=== PATIENT | male | born 1945 | race Caucasian/White ===

== ENCOUNTER 2016-04-16 15:39 | Emergency (ER) | payer OTHER ==
[~2016-04-16] VITALS: Ht 170.2 cm; Wt 83.0 kg
[~2016-04-16 15:39] MED LIST: ASPI81TA28 PO; CZR50 PO
[2016-04-16 15:48] VITALS: Ht 170.2 cm; Wt 83.0 kg
[2016-04-16] MEDS ORDERED: OXYCODONE HCL IR 5 MG TAB (IMMEDIATE RELEASE) PO STA (16:32)
[2016-04-16] MEDS ORDERED: DIPH25CA65 PO (16:43)
[2016-04-16] MEDS ORDERED: CHOL1000 PO (16:43)
[2016-04-16] MEDS ORDERED: XYLOCAINE 1%/SOD BICARB 20 ML VIAL INFIL ONE (16:45)
[2016-04-16] MEDS ORDERED: BUPIVACAINE 0.5 % 5 MG/1 ML MPF 30ML VIAL INFIL ONE (16:45)
--- NOTE | 2016-04-16 17:09 | DIAGNOSTIC IMAGING REPORT ---
LEFT SECOND FINGER RADIOGRAPHS CLINICAL HISTORY: Left second finger fracture. COMPARISON: None FINDINGS: There is soft tissue irregularity of the distal aspect of the left second finger. There are several tiny bone fragments adjacent to the distal aspect of the distal phalanx of the left second finger. Cortical irregularity of the distal tuft is noted defined suggest a minimally displaced fracture with tiny bone fragments. There is minimal bone loss. IMPRESSION: Cortical irregularity of the distal tuft of the distal phalanx of the left second finger consistent with a minimally displaced fracture with a few associated tiny bone fragments. Electronically signed by: Rafiq Owens M.D. 04/16/2016 5:08 PM Dictated Date/Time: 04/16/2016 5:06 PM
--- NOTE | 2016-04-16 17:12 | EMERGENCY ROOM VISIT NOTE ---
ED Visit Note First contact with patient: 16:25 I have seen and examined this patient with Blaine Rios and generally agree with the treatment plan as discussed. Current/Historical Medications Scheduled Aspirin (Aspirin Ec), 81 MG PO DAILY Cholecalciferol (Vitamin D3), 2,000 INTER.UNIT PO DAILY Diphenhydramine Hcl (Benadryl Allergy), 50 MG PO HS Losartan Potassium (Losartan Potassium), 50 MG PO DAILY Allergies Coded Allergies: No Known Allergies (Verified , 08/18/15) Vital Signs Date Time Temp Pulse Resp B/P Pulse Ox O2 Delivery O2 Flow Rate FiO2 04/16/16 15:48 36.8 63 18 127/83 98 Room Air Medications Administered Medications (Trade) Dose Ordered Sig/Krish Route Start Time Stop Time Status Last Admin Dose Admin Oxycodone HCl (Roxicodone Immediate Rel Tab) 5 mg NOW STAT PO 04/16/16 16:32 04/16/16 16:34 DC 04/16/16 16:49 5 MG Departure Information Referrals Jamil Chiang M.D. (PCP) Patient Instructions My [facility]
[2016-04-16] MEDS ORDERED: CEPH500C2 PO ×2 (18:17→18:38)
--- NOTE | 2016-04-16 18:18 | EMERGENCY ROOM VISIT NOTE ---
ED Visit Note First contact with patient: 16:25 CHIEF COMPLAINT: Cut left second finger on a table saw HISTORY OF PRESENT ILLNESS: Patient is a left-hand dominant 70-year-old white male who presents to the emergency department for evaluation of an injury to the tip of the left second finger. He was using a table saw to cut some trim, when he accidentally struck his finger on the blade. He notes partial nail avulsion and laceration on the tip of the left second finger. Bleeding was controlled with a bandage. He rates his discomfort a 5/10. Denies weakness or numbness of the finger. REVIEW OF SYSTEMS: Review of systems as per HPI. All other systems reviewed were negative. At least 6 systems reviewed. PMH: Electronic medical records are reviewed and summarized as above/below. See Problem List. His tetanus is up-to-date. SOCIAL HISTORY: Patient lives at home with his . Smoker. PHYSICAL EXAM: Vital Signs: Reviewed Nurse's notes. There is a 2 cm laceration noted running horizontally through the nailbed of the left second finger. The distal two thirds of the nail has been ripped off. There is no foreign material in the wound and it looks clean. There is no bleeding. No deep structures such as tendons or nerves are seen in the base of the wound. Distal phalanx is able to be palpated through the laceration. Extension and flexion of the finger is full and strong. EMERGENCY DEPARTMENT COURSE: Patient was medicated with 1 oxycodone tablet orally for discomfort. X-rays of the left second finger were obtained and consistent with a small tuft fracture. Using sterile technique, the finger was prepped with Betadine and a digital block was performed using 1% plain buffered lidocaine. When adequate anesthesia was obtained, the laceration was irrigated copiously with normal saline solution and scrubbed with Betadine. There is no evidence for foreign body. Laceration was repaired using 7, 5-0 nylon sutures. Bacitracin and a light dressing were applied. Patient has a metal finger cage splint at home. He will be placed on Keflex given the open fracture. He is established with [facility] and can follow-up with them if he would like. There is no evidence for tendinous injury. Problem List Medical Problems: (1) Finger laceration Status: Resolved (2) Hypertension Status: Chronic (3) Malign Neopl Prostate Status: Resolved (4) Open fracture Status: Resolved Current/Historical Medications Scheduled Aspirin (Aspirin Ec), 81 MG PO DAILY Cephalexin Monohydrate (Keflex), 500 MG PO QID Cholecalciferol (Vitamin D3), 2,000 INTER.UNIT PO DAILY Diphenhydramine Hcl (Benadryl Allergy), 50 MG PO HS Losartan Potassium (Losartan Potassium), 50 MG PO DAILY Allergies Coded Allergies: No Known Allergies (Verified , 08/18/15) Vital Signs Date Time Temp Pulse Resp B/P Pulse Ox O2 Delivery O2 Flow Rate FiO2 04/16/16 18:39 36.8 63 18 127/83 98 04/16/16 15:48 36.8 63 18 127/83 98 Room Air Medications Administered Medications (Trade) Dose Ordered Sig/Krish Route Start Time Stop Time Status Last Admin Dose Admin Oxycodone HCl (Roxicodone Immediate Rel Tab) 5 mg NOW STAT PO 04/16/16 16:32 04/16/16 16:34 DC 04/16/16 16:49 5 MG Cephalexin Monohydrate (Keflex 500MG Home Pack) 1 homepack NOW ONCE PO 04/16/16 18:30 04/16/16 18:31 DC 04/16/16 18:45 1 HOMEPACK Departure Information Impression Primary Impression: Open fracture of tuft of distal phalanx of finger Additional Impression: Nailbed laceration, finger Prescriptions Cephalexin Monohydrate (KEFLEX) 500 Mg Cap 500 MG PO QID, #40 CAP Prov: Ronel Irby PA 04/16/16 Referrals Jamil Chiang M.D. (PCP) Patient Instructions My [facility] Additional Instructions Keep wound clean and dry. Do not allow any crusting or dried blood to accumulate on sutures. If this occurs, use a 1:1 solution of hydrogen peroxide/ water on a Q-tip to clean the wound. Use an antibiotic ointment for 3-4 days, then let wound dry. Suture removal in 12-14 days. Return sooner for any signs of infection (increasing redness, swelling, drainage). Ice and elevate for swelling and pain. Ibuprofen 600 mg and Tylenol 1000 mg every 6 hrs for pain. Cephalexin(Keflex) 500mg: Take one pill four times daily for 10 days to prevent infection. All antibiotics can cause diarrhea. If this occurs and you feel worse or it does not resolve in 1-2 days follow up with your doctor or return to the Emergency Department as this could be signs of serious underlying problems. Any medication can cause an allergic reaction, stop the pills immediately and return to the ER for rash, hives, breathing difficulties, or swelling. Follow up with your family doctor or with orthopedic surgery for further care and management if you would like the wound reevaluated. Problem Qualifiers Primary Impression: Open fracture of tuft of distal phalanx of finger Encounter type: initial encounter Qualified Codes: S62.639B - Displaced fracture of distal phalanx of unspecified finger, initial encounter for open fracture Additional Impression: Nailbed laceration, finger Encounter type: initial encounter Qualified Codes: S61.319A - Laceration without foreign body of unspecified finger with damage to nail, initial encounter
[2016-04-16] MEDS ORDERED: CEPHALEXIN 500MG HOME PACK 1 EA BTL PO ONE (18:30)
[2016-04-16 18:39] VITALS: BP 127/83; PULSE 63; TEMP 36.8; O2SAT 98
== END 2016-04-16 18:42 | disposition home or self-care (01) ==
LOC: C.EDB 15:40 → C.EDD 18:42
DX: S62.631B Displaced fracture of distal phalanx of left index finger, initial encounter for open fracture (principal); S61.301A Unspecified open wound of left index finger with damage to nail, initial encounter; W27.0XXA Contact with workbench tool, initial encounter; I10 Essential (primary) hypertension; F17.210 Nicotine dependence, cigarettes, uncomplicated; Z87.81 Personal history of (healed) traumatic fracture; Z85.46 Personal history of malignant neoplasm of prostate; Z79.82 Long term (current) use of aspirin; Z79.899 Other long term (current) drug therapy

== ENCOUNTER → 2017-02-02 | Outpatient (CLI) | payer OTHER ==
[~2017-02-02] MED LIST changes: +CEPH500C2 PO; +CHOL1000 PO; +DIPH25CA65 PO
[2017-02-02 12:18] LABS: ESTIMATED AVERAGE GLUCOSE 154 mg/dl; HA1C FLAG Normal (Normal)
[2017-02-02 12:29] LABS: BLOOD UREA NITROGEN 18 mg/dl (7-18); BUN/CREATININE RATIO 18.9 (10-20); CARBON DIOXIDE 26 mmol/L (21-32); CHLORIDE 102 mmol/L (98-107); CHOLESTEROL 166 mg/dl (0-200); CREATININE 0.96 mg/dl (0.60-1.40); GLUCOSE 142 mg/dl (70-99); POTASSIUM 4.1 mmol/L (3.5-5.1); SODIUM 134 mmol/L (136-145)
[2017-02-02 12:32] LABS: HDL CHOLESTEROL 41 mg/dl; LDL CHOLESTEROL CALCULATED 106 mg/dl; TRIGLYCERIDES 95 mg/dl (0-150); VERY LOW DENSITY LIPOPROT CALC 19 mg/dl
--- NOTE | 2017-02-03 12:59 | CODING QUERY NO DIAGNOSIS ---
TREATMENT RENDERED WITHOUT A DIAGNOSIS To promote full compliance with coding requirements relating to patient care, physician participation is requested in all cases of bee keeper uncertainty. Please assist us with providing a diagnosis/symptom for the test(s) below: A diagnosis/symptom was not documented on your Order. A valid diagnosis/symptom is required to bill all insurances. Please remember that we are unable to code a diagnosis of rule out, probable, possible, questionable, or suspected. DATE OF SERVICE: 02/02/17 (the diagnosis on the order were not legible and had invalid abbreviations) Tests that require a diagnosis: * BASIC METABOLIC PROFILE DIAGNOSIS: * LIPID PANEL DIAGNOSIS: * GLYCOHEMOGLOBIN A1C DIAGNOSIS: * HA1C RESULT DIAGNOSIS: * VITAMIN D 25 HYDROXY DIAGNOSIS: Provider Signature: Date: Thank you Em Moralez [facility] Information Management Once completed, please kindly fax back to [phone] For questions please call [phone]
== END | disposition home or self-care (01) ==
LOC: C.LABBFT 08:10
PROVIDERS: ATTEND Family Medicine
DX: E55.9 Vitamin D deficiency, unspecified (principal); E78.2 Mixed hyperlipidemia; I10 Essential (primary) hypertension; R73.9 Hyperglycemia, unspecified

== ENCOUNTER → 2017-05-09 | Outpatient (CLI) | payer OTHER ==
[2017-05-09 12:48] LABS: BLOOD UREA NITROGEN 12 mg/dl (7-18); CREATININE 0.94 mg/dl (0.60-1.40); GLUCOSE 145 mg/dl (70-99)
[2017-05-09 12:49] LABS: CALCIUM 9.2 mg/dl (8.5-10.1); CARBON DIOXIDE 27 mmol/L (21-32); POTASSIUM 3.7 mmol/L (3.5-5.1); SODIUM 139 mmol/L (136-145)
[2017-05-09 12:52] LABS: HEMOGLOBIN A1C 6.9 % (4.5-5.6)
== END | disposition home or self-care (01) ==
LOC: C.LABBFT 10:23
PROVIDERS: ATTEND Family Medicine
DX: E11.9 Type 2 diabetes mellitus without complications (principal)

== ENCOUNTER → 2017-10-24 | Outpatient (CLI) | payer OTHER ==
[2017-10-24 11:07] LABS: HEMATOCRIT 55.3 % (42-52); HEMOGLOBIN 19.4 g/dL (14.0-18.0); MEAN CELL VOLUME 99.1 fL (80-100); MEAN CORPUSCULAR HEMOGLOBIN 34.8 pg (25-34); MEAN PLATELET VOLUME 10.1 fL (7.4-10.4); PLATELET COUNT 329 K/uL (130-400); RED CELL DISTRIBUTION WIDTH CV 13.4 % (11.5-14.5); RED CELL DISTRIBUTION WIDTH SD 46.5 fL (36.4-46.3); WHITE BLOOD COUNT 6.91 K/uL (4.8-10.8)
[2017-10-24 11:16] LABS: CREATININE 0.87 mg/dl (0.60-1.40)
[2017-10-24 11:56] LABS: MEAN CORPUSCULAR HGB CONC 35.1 g/dl (32-36)
== END | disposition home or self-care (01) ==
LOC: C.LABSPEC 10:47
PROVIDERS: ATTEND Internal Medicine Infectious Disease
DX: Z79.2 Long term (current) use of antibiotics (principal)

== ENCOUNTER → 2017-10-27 | Outpatient (CLI) | payer OTHER | END | disposition home or self-care (01) | LOC: C.LABSPEC 10:46 | PROVIDERS: ATTEND Internal Medicine Infectious Disease | DX: Z79.2 Long term (current) use of antibiotics (principal) ==